=== PATIENT | male | born 1960 | race Caucasian/White ===

== ENCOUNTER 2017-02-06 21:56 | Emergency (ER) | payer OTHER | END 2017-02-06 23:19 | disposition home or self-care (01) | LOC: MERGE 21:56 → ERS 21:56 | DX: S81.811A Laceration without foreign body, right lower leg, initial encounter (principal); F43.10 Post-traumatic stress disorder, unspecified; Z87.891 Personal history of nicotine dependence; V86.99XA Unspecified occupant of other special all-terrain or other off-road motor vehicle injured in nontraffic accident, initial encounter ==

== ENCOUNTER 2017-09-30 18:00 | Emergency (ER) | payer OTHER ==
[2017-09-30 19:44] LABS: #Eosinphils 0.5 thou/uL (0.0-0.7); #Lymphocytes 2.5 thou/uL (1.20-3.40); #Monocytes 0.7 thou/uL (0.11-0.59); #Neutrophils 4.5 thou/uL (1.40-6.50); %Basophils 0.4 % (0.0-1.0); %Eosinophils 6.5 % (0.0-10.0); %Neutrophils 55.1 % (42.0-75.0); Hemoglobin 14.3 g/dL (14.0-18.0); Mean Corpuscular HGB CONC 35.7 g/dL (32.0-36.0); Mean Corpuscular Hemoglobin 32.3 pg (27.0-31.0); Mean Corpuscular Volume 90.6 fL (78.0-98.0); Platelet Count 234 thou/uL (130-400); RBC Distribution Width 11.8 % (11.5-14.5); Red Blood Cell (RBC) Count 4.41 mill/uL (4.70-6.10); White Blood Cell (WBC) Count 8.2 thou/uL (4.8-10.8)
[2017-09-30 20:06] LABS: ALT (SGPT) 55 U/L (8-55); AST (SGOT) 34 U/L (5-34); Albumin 4.2 g/dL (3.5-5.0); Alcohol Less than 10 mg/dL (Less than 10); Alkaline Phosphatase 95 U/L (40-150); Anion Gap 16 mmol/L (10-20); BUN (Urea Nitrogen) 12 mg/dL (8.4-25.7); Bilirubin, Total 0.3 mg/dL (0.2-1.2); CK (CPK) 122 U/L (30-200); Calc. Creatinine Clearance 0 mL/min (70-130); Calcium 9.4 mg/dL (7.8-10.44); Carbon Dioxide 24 mmol/L (22-29); Chloride 101 mmol/L (98-107); Estimated GFR-MDRD 81; Globulin 3.3 g/dL (2.4-3.5); Glucose 159 mg/dL (70-105); Potassium 3.9 mmol/L (3.5-5.1); Protein, Total 7.5 g/dL (6.0-8.3); Sodium 137 mmol/L (136-145)
[2017-09-30 20:08] LABS: Acetaminophen Less than 6.0 mcg/mL (10.0-30.0); Alcohol Less than 10 mg/dL (Less than 10); Salicylate Less than 8.0 mg/dL (15.0-30.0)
[2017-09-30 20:48] LABS: Bilirubin Negative (Negative); Blood, Urine Negative (Negative); Clarity CLEAR (Clear); Glucose, Urine (Dipstick) Negative (Negative); Leukocyte Negative (Negative); Nitrite Negative (Negative); Protein, Urine (Dipstick) Negative (Neg-Trace); Urobilinogen 0.2 mg/dL (0.2-1.0)
[2017-09-30 20:57] LABS: Cocaine Metabolite Screen Not Detected (NotDetected); Medtox Reader # READER 4; Phencyclidine (PCP) Not Detected (NotDetected); THC/Cannabinoid Screen Not Detected (NotDetected)
[2017-09-30 20:58] LABS: Amphetamine Not Detected (NotDetected); Barbiturates Screen Not Detected (NotDetected); Benzodiazepine Screen Not Detected (NotDetected); Medtox Control Line Valid? VALID (VALID); Methadone Not Detected (NotDetected); Methamphetamine Not Detected (NotDetected); Opiate Screen Not Detected (NotDetected); Oxycodone Screen Not Detected (NotDetected); Tricyclic Screen Detected (NotDetected)
[2017-10-01] MEDS ORDERED: traZODone HCl 50 MG TAB ONE (00:28)
[2017-10-01] MEDS ORDERED: Venlafaxine HCl XR 150 MG CAP PO SCH (09:00)
== END 2017-10-01 08:51 ==
LOC: ERS 18:00
DX: R45.851 Suicidal ideations (principal); E78.5 Hyperlipidemia, unspecified; F41.9 Anxiety disorder, unspecified; F32.9 Major depressive disorder, single episode, unspecified; F43.10 Post-traumatic stress disorder, unspecified; F17.210 Nicotine dependence, cigarettes, uncomplicated; M06.9 Rheumatoid arthritis, unspecified; Z79.899 Other long term (current) drug therapy
CPT/HCPCS: 36415; 80053; 80306; 80307; 81003; 82550; 84443; 85025; 99285